=== PATIENT | male | born 1970 | race Caucasian/White ===

== ENCOUNTER 2020-05-02 10:39 | Emergency (ER) | payer OTHER ==
[~2020-05-02] VITALS: Ht 182.9 cm; Wt 113.4 kg
--- NOTE | 2020-05-02 11:31 | NUR ---
pt received lela bed sleeping. nad noted. no resp distress. vss
[2020-05-02] MEDS: IV NS 0.9% 500 ML BAG IV ONE (12:30)
[2020-05-02 12:42] LABS: BASOPHILS % (AUTO) 0.4 % (0.0-2.0); EOSINOPHILS % (AUTO) 1.6 % (0.0-6.0); HEMATOCRIT 37 % (39-51); HEMOGLOBIN 12.7 g/dL (13.5-17.5); LYMPHOCYTES # (AUTO) 1.7 /CMM (0.8-4.8); MEAN CORPUSCULAR HGB CONC 35 g/dl (31.0-36.0); MEAN CORPUSCULAR VOLUME 91 fL (80-96); MONOCYTES # (AUTO) 0.5 /CMM (0.1-1.30); MONOCYTES % (AUTO) 9.9 % (2.0-12.0); NEUTROPHILS # (AUTO) 2.8 /CMM (1.8-8.9); NEUTROPHILS % (AUTO) 55.1 % (43.0-81.0); PLATELET COUNT (AUTO) 175 /CMM (150-450); RED BLOOD CELL COUNT(AUTO) 4.04 MIL/uL (4.5-6.0); WHITE BLOOD COUNT (AUTO) 5.1 K/uL (4.3-11.0)
[2020-05-02 12:48] LABS: CALCIUM, SERUM 8.2 mg/dL (8.5-10.1); CREATININE 0.8 mg/dL (0.6-1.3); POTASSIUM 3.4 mmol/L (3.5-5.1)
[2020-05-02 12:54] LABS: ALBUMIN 3.7 g/dL (3.4-5.0); BILIRUBIN,TOTAL 0.5 mg/dL (0.2-1.0); TOTAL PROTEIN, SERUM 7.5 g/dL (6.4-8.2)
[2020-05-02 12:55] LABS: SALICYLATE 0.8 mg/dL (2.8-20.0)
[2020-05-02 13:12] LABS: BILIRUBIN,DIRECT 0.2 mg/dL (0.0-0.2)
--- NOTE | 2020-05-02 13:32 | NUR ---
[place] CALLED IN BY BYSTANDER FOUND LYING ON THE GROUND TO ER BED 12. PT IS SLEEPING BUT ARROUSABLE. RESPONDS WHEN TALKED TO. BROUGHT IN FOR ALCOHOL INTOXICATION. PT SMELLS OF ALCOHOL. NOT ION ANY RESP DISTRESS, BREATHING EVEN AND UNLABORED. AWAITING MD FOR EVAL.
--- NOTE | 2020-05-02 14:14 | NUR ---
social johnston at bedside talking to pt
--- NOTE | 2020-05-02 14:17 | NUR ---
pt is hard stick. pt has been attempted to put in an iv line with no success by multiple nurses. md made aware. held iv fluids. noted and carried out
--- NOTE | 2020-05-02 14:26 | NUR ---
FATHER Faith CARRILLO [phone]
--- NOTE | 2020-05-02 14:33 | NUR ---
12:45pm This SW met the patient at bedside. Patient presented to [facility] ER by rescue ambulance. Per MD note, patient was lying on the ground and a bystander called 911. Patient presented as a Manuel Freeman undergoing alcohol withdrawal. Patient was able to provide his name Ben Arceo and fathers name and contact information: Ángel Vee . Patient informed this SW to call his father. Patient was able to inform this SW that he was hungry, and he would like something to eat. Patient also informed this SW that he was tired and wanted to sleep. SW to speak to patients father Ángel Arceo per patients request.
--- NOTE | 2020-05-02 14:34 | NUR ---
1pm SW spoke to patients father Ángel Arceo . Patients father provided this SW with the date of , social security number, address and some medical history regarding the patient. Per Ángel, patient was admitted to [facility] a few weeks ago and that was the last time he had heard of patients whereabouts. Per Ángel, patient has been diagnosed with bipolar disorder and Parkinsons disease. Ángel stated that patient has a brain surgery appointment at [facility] but could not provide this SW with surgery date. Ángel reports that patient goes to [facility] in [place] to obtain a shot to help prevent patient from drinking alcohol. Per Ángel, patient reported to [facility] last week to obtain this shot. Ángel also reports that patient has a psychiatrist and social insurance administrator who follows his case. Ángel reports that the patient has had a history of auditory and visual hallucinations. Per Ángel, patient has also had a history of 5150 holds, last one being at [facility] for suicidal ideation. Ángel reports to this SW that he fears that the patient will hurt himself if he is discharged without receiving help. Per Ángel, the patient knows the system and knows how to answer to be released. 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 SW to provide demographic information to ER admitting. SW to return to speak to the patient
--- NOTE | 2020-05-02 14:41 | NUR ---
SPOKE WITH PT'S FATHER THAT PT IS TO BE DISCHARGED AND NEEDS TO INTERIOR HORTICULTURIST HIS SON. PT'S FATHER WILL CALL BACK FOR TRNASPORT ARRANGEMENT.
--- NOTE | 2020-05-02 15:18 | NUR ---
CALLED FATHER BACK TO FOLLOW UP ON [employer]. NO ANSWER, MESSAGE LEFT
--- NOTE | 2020-05-02 16:14 | NUR ---
AMY SILVA ATTEMPTED TO CALL FATHER,NO ANSWER,LEFT MESSAGE
--- NOTE | 2020-05-02 16:15 | NUR ---
SW attempted to speak to patients father Ángel Arceo . Ángel was unavailable and this SW left a voicemail. BENJIE asked Ángel to have him or patient's brother to contact ED directly .
--- NOTE | 2020-05-02 16:30 | NUR ---
TESTED PT'S GAIT. PT AMBULATED TO THE BATHROOM ON STEADY GAIT W/O ASSIST. NAD NOTED
--- NOTE | 2020-05-02 16:38 | NUR ---
pt provided with clothes and food
--- NOTE | 2020-05-02 16:38 | NUR ---
JEFE FIGUEROA WILL ARRIVE IN ABOUT 45 MIN TO PICKUP PT. [phone]
--- NOTE | 2020-05-02 17:00 | NUR ---
Lilian banerjee in ED - 05/02/20 at 1821 by GUI Ambulatory, appropriate/responsive/conversant for discharge Patient discharged to home in stable condition w/family. Written and verbal after care instructions given. Patient verbalizes understanding of instruction.
--- NOTE | 2020-05-02 17:28 | NUR ---
Patient discharged to home in stable condition. Written and verbal after care instructions given. Patient verbalizes understanding of instruction. Pt ambulatory with a steady gait
[2020-05-02 18:15] VITALS: BP 110/70
== END 2020-05-02 18:19 | disposition home or self-care (01) ==
LOC: ER 10:42 → EDBD 10:42 → ER 18:19
DX: F10.129 Alcohol abuse with intoxication, unspecified (principal); R40.0 Somnolence; Y90.7 Blood alcohol level of 200-239 mg/100 ml
CPT/HCPCS: 36415; 80048; 80076; 80307; 80329; 85025; 93005; 99284; G0480; J7040

== ENCOUNTER 2021-01-07 14:24 | Emergency (ER) | payer OTHER ==
[~2021-01-07] VITALS: Ht 180.3 cm; Wt 83.9 kg
--- NOTE | 2021-01-07 14:30 | NUR ---
The patient is [id number], ETOH, admits on drinking alcohol, denies drugs use, BS 64. The patient is alert to self. Denies pain. In room air and denies SOB. Respiration regular and unlabored. Attached to the monitor. Warm blanket provided for comfort. Will continue to monitor the patient.
[2021-01-07] MEDS ORDERED: IV NS 0.9% 1,000 ML BAG IV ONE (15:00)
--- NOTE | 2021-01-07 15:35 | NUR ---
"Assembler Seat: player services representative requested for homelessness and ETOH use. Patient is a 50-year-old, male. SW attempted to interview at his bedside in the emergency department. Patient was unarousable. Per chart, patient was brought in by ambulance on 01/07/21 for ETOH use. SW filed homeless and substance use resources in the patient's chart. PLAN: SS will remain available if needed. RESOURCES: Year-round shelters: [facility] [place] [address] [place] [address] ; [facility] [address] [address] [place] [address]; [facility] [id number] [facility] [address] SPA 4 | Ranjith Duran [place] [facility] [place] Provider: First to Serve Address: [address], [address] # of Beds: 48 Population Served: [facility] Provider: First to Serve Address: [address] [facility], [address] # of Beds: 73 Population Served: [facility] 6 | [facility] Provider: [facility] at Last Address: [address] [facility], [address] # of Beds: 63 Population Served: [facility] 3 | [facility] Provider: [place] [facility] [place] Address: [address] [id number] # of Beds: 75 Population Served: [facility] 8 | [facility] Provider: [facility] [place] Address: [address] [facility] [address] # of Beds: 80 Population Served: [facility] 1 | [facility] Provider: [facility] [place] Address: [address] [place] [address] # of Beds: 85 Population Served: [facility] 2 | [facility] Provider: [facility] [place] Address: Confidential (please call for location) # of Beds: 52 Population Served: [facility] 4 | [facility] Provider: [facility] Address: [address] [facility], [address] # of Beds: 49 Population Served: [facility] Provider: First To Serve Address: [address] [place] [address], [address] # of Beds: 27 Population Served: [facility] Hy[facility]: [facility]: [address] [place] ; [facility] [address] [facility] ; [facility] [address] [facility] . Food Resources: [place] [employer] at [facility]- [address] [facility]; Meet Each Need with [facility] ([facility]) [address] [facility]; [facility] Food [facility] [address] [facility]; [facility] [address] [facility]. Mental Health resources provided: [facility] [address] [place], [place] [id number] ; [facility] [address] [facility] [address], [place], [place] [phone] ; [facility] [address] [address], [place] [phone] ; [facility] [address] [place], [place] [phone] Healthcare Clinics: [facility] [address] [facility], [address] [place]. [place] ; [facility] [address] [facility] [address] [place] [address]; [facility] [address] [facility]. [place] [phone] Counseling--Outpatient [facility] [address] [facility] [facility], [place] [address] (Specializes in in-depth psychotherapy for emotional distress: anxiety, depression, interpersonal conflicts, life transitions, childhood abuse) PSYCHIATRIC OUTPATIENT SERVICES [facility] Partial Hospitalization and Intensive Outpatient Program (Managed Care and [place] Only) [address] [facility] [address] [facility] Partial Hospitalization and Outpatient Program [address] [place] [address] [facility] Partial Hospitalization and Outpatient Program [address] [place] [address] VAN Critical access hospital Mental [facility] [address] [address] [place] [address] [facility] Partial Hospitalization and Outpatient Program [address] [place], [place] [phone] Substance use resources provided included: [facility] Substance Abuse Self-Helpline (SAS) ; [facility] [address] [facility]. [place] [address] ; [facility] [address] [facility] [address] ; [facility] [address] [facility] [id number] ; [facility] [address] [facility] [phone] ; [facility] [address] [facility] [address] ; [facility] [place]; [facility] [place]; [facility] [place]; Alcoholics Anonymous -SFV"
[2021-01-07 15:57] LABS: CALCIUM, SERUM 8.5 mg/dL (8.5-10.1); CARBON DIOXIDE 22 mmol/L (21-32); CHLORIDE 106 mmol/L (98-107); CREATININE 0.8 mg/dL (0.6-1.3); GLUCOSE 102 mg/dL (74-106); POTASSIUM 3.7 mmol/L (3.5-5.1); SODIUM SERUM 142 mmol/L (136-145); UREA NITROGEN, BLOOD 18 mg/dL (7-18)
[2021-01-07 16:02] LABS: ALANINE AMINOTRANSFERASE 20 U/L (12-78); ALBUMIN 3.7 g/dL (3.4-5.0); ALCOHOL, BLOOD 151 mg/dL (0-0); ALKALINE PHOSPHATASE 88 U/L (46-116); ASPARTATE AMINOTRANSFERASE 27 U/L (15-37); BILIRUBIN,DIRECT 0.3 mg/dL (0.0-0.2); BILIRUBIN,TOTAL 0.6 mg/dL (0.2-1.0); TOTAL PROTEIN, SERUM 7.2 g/dL (6.4-8.2)
[2021-01-07 16:03] LABS: ACETAMINOPHEN < 0 ug/ml (10-30)
[2021-01-07 16:47] LABS: BASOPHILS % (AUTO) 0.4 % (0.0-2.0); EOSINOPHILS % (AUTO) 0.1 % (0.0-6.0); HEMATOCRIT 41 % (39-51); HEMOGLOBIN 13.6 g/dL (13.5-17.5); LYMPHOCYTES # (AUTO) 1.3 /CMM (0.8-4.8); LYMPHOCYTES % (AUTO) 14.4 % (20.0-44.0); MEAN CORPUSCULAR HGB CONC 33 g/dl (31.0-36.0); MEAN CORPUSCULAR VOLUME 93 fL (80-96); MONOCYTES # (AUTO) 0.5 /CMM (0.1-1.30); MONOCYTES % (AUTO) 6.1 % (2.0-12.0); NEUTROPHILS # (AUTO) 7.1 /CMM (1.8-8.9); RED BLOOD CELL COUNT(AUTO) 4.43 MIL/uL (4.5-6.0); WHITE BLOOD COUNT (AUTO) 8.9 K/uL (4.3-11.0)
[2021-01-07 17:15] LABS: PLATELET COUNT (AUTO) 166 /CMM (150-450)
[2021-01-07 17:18] LABS: BILIRUBIN,URINE SMALL (NEGATIVE); COLOR,URINE DARK YELLOW (YELLOW); LEUKOCYTE ESTERASE ,URINE Negative (NEGATIVE); NITRITE, URINE Negative (NEGATIVE); PROTEIN,URINE Negative (NEGATIVE); UGLUCOSE Negative (NEGATIVE)
[2021-01-07 17:44] LABS: BACTERIA,URINE Few /HPF (None Seen); MUCUS,URINE Few /LPF (None Seen); RBC,URINE 0-2 /HPF (0-2); SQUAMOUS EPITHELIAL CELL,UR Few /HPF (None Seen); WBC,URINE 0-2 /HPF (0-3)
[2021-01-07] MEDS ORDERED: LORAZEPAM INJ 2 MG/ML VIAL ONE (18:06)
[2021-01-07] MEDS ORDERED: LORAZEPAM INJ 2 MG/ML VIAL IV ONE (18:30)
--- NOTE | 2021-01-07 18:42 | NUR ---
PT GAVE FATHER'S CONTACT # [phone]. MADE AWARE THAT PT IS IN THE ER.
--- NOTE | 2021-01-07 19:02 | NUR ---
THE PATIENT SLEEPING IN BED. RESPONSIVE TO VERBAL STIMULI. RESPIRATION REGULAR AND UNLABORED. PATIENT IS IN NO APPARENT DISTRESS. 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
--- NOTE | 2021-01-07 20:02 | NUR ---
COVID SWAB COLLECTED AND SENT TO LAB
--- NOTE | 2021-01-07 20:39 | NUR ---
COVID RESULTS NEGATIVE
--- NOTE | 2021-01-07 21:01 | NUR ---
RECEIVED CALL FROM PT GIRLFRIEND AQUILINO - [phone], PLEASE CALL WITH UPDATES/DISCHARGE TRANSPORT PLAN
--- NOTE | 2021-01-08 01:05 | NUR ---
pt is sleeping. brething evenly. no sob. no distress. no tremur noted. pt remained on close observation. VSS. will cont to monitor
--- NOTE | 2021-01-08 05:02 | NUR ---
pt is awake, alert and ox4. ambulatory with steady gaits. pt denied SI/HI and reported willing to leave. per him he lives in [place] and can take a bus to get home. PO intake tolerated well. no s/s of choking. no n/v. per MD, pt is stable for discharge, IV removed. Catheter intact and site benign. Pressure and 4x4 applied to site. No bleeding noted.Patient discharged to home in stable condition. Written and verbal after care instructions given. Patient verbalizes understanding of instruction.
[2021-01-08 05:11] VITALS: BP 117/63
== END 2021-01-08 05:11 | disposition home or self-care (01) ==
LOC: ER 14:28
DX: R45.851 Suicidal ideations (principal); E86.0 Dehydration; Z20.822 Contact with and (suspected) exposure to COVID-19; F10.129 Alcohol abuse with intoxication, unspecified; Y90.6 Blood alcohol level of 120-199 mg/100 ml; Z59.0 Homelessness; G20 Parkinson's disease; G40.909 Epilepsy, unspecified, not intractable, without status epilepticus; I10 Essential (primary) hypertension; E11.9 Type 2 diabetes mellitus without complications
CPT/HCPCS: 36415; 71045; 80048; 80076; 80143; 80307; 80320; 81001; 82962 ×2; 83735; 85025; 87426; 96361; 96374; 99285; C9803; J2060; J7030; G0480